=== PATIENT | female | born 1980 | race Caucasian/White ===

== ENCOUNTER 2017-04-15 21:30 | Emergency (ER) | payer MEDICAID ==
[~2017-04-15] VITALS: Ht 170.2 cm; Wt 63.5 kg
[2017-04-15 21:35] VITALS: BP 128/98
--- NOTE | 2017-04-15 21:42 | NUR ---
Pt presents to ED with chronic cough x2 months. Pt states all previous interventions have not alleviated her cough. Pt states pain to bilateral chest wall and back. Pain is rated 5/10 and present every time she coughs. Pt denies SOB or dyspnea. Afebrile. Cough clear and non-productive. Pt in bed with HOB elevated. ER MD aware. Continue to monitor.
--- NOTE | 2017-04-16 | NUR ---
Pt in bed in POC with HOB elevated. VSS. Cough present. A&Ox4. Afebrile. ER aware. Continue to monitor.
[2017-04-16] MEDS ORDERED: ALBUTEROL 0.083% 2.5 MG/3 ML NEBU INH ONE (00:25)
[2017-04-16] MEDS ORDERED: IPRATROPIUM 0.02% 0.5 MG/2.5 ML NEBU INH ONE (00:25)
[2017-04-16] MEDS ORDERED: AZITHROMYCIN 500 MG in DEXTROSE 5% 250 ML IV ONE (00:25)
[2017-04-16] MEDS ORDERED: methylPREDNISolone SS 125 MG in WATER STERILE 2 ML IV ONE (00:25)
[2017-04-16] MEDS ORDERED: ACETAMINOPHEN EXTRA STRENGTH 500 MG TAB PO ONE (00:25)
[2017-04-16] MEDS ORDERED: AZITHROMYCIN 500 MG INJ VIAL IV ONE (00:35)
[2017-04-16 00:43] LABS: BASOPHILS # (AUTO) 0.3 K/uL (0.00-0.22); BASOPHILS % (AUTO) 3.7 % (0.0-2.0); EOSINOPHILS # (AUTO) 0.1 K/uL (0-0.4); HEMATOCRIT 40.5 % (36-48); HEMOGLOBIN 13.1 g/dL (12.0-16.0); LYMPHOCYTES # (AUTO) 2.3 K/uL (2.5-16.5); LYMPHOCYTES % (AUTO) 32.4 % (20.5-51.1); MEAN CORPUSCULAR HEMOGLOBIN 31 pg (27-31); MEAN CORPUSCULAR HGB CONC 33 g/dL (33-37); MEAN CORPUSCULAR VOLUME 94 fL (80-94); MONOCYTES # (AUTO) 0.5 K/uL (0.8-1.0); MONOCYTES % (AUTO) 7.4 % (1.7-9.3); NEUTROPHILS # (AUTO) 3.9 K/uL (1.8-7.7); NEUTROPHILS % (AUTO) 54.5 % (42.2-75.2); PLATELET COUNT (AUTO) 174 K/uL (140-450); RED BLOOD CELL COUNT(AUTO) 4.31 MIL/uL (4.20-5.40); RED CELL DISTRIBUTION WIDTH 13.1 % (11.6-13.7); WHITE BLOOD COUNT (AUTO) 7.1 K/uL (4.8-10.8)
[2017-04-16 00:45] LABS: APPEARANCE,URINE CLEAR (CLEAR); BILIRUBIN,URINE NEGATIVE (NEGATIVE); BLOOD, URINE 1+ (NEGATIVE); COLOR,URINE YELLOW (YELLOW); LEUKOCYTE ESTERASE ,URINE NEGATIVE (NEGATIVE); NITRITE, URINE NEGATIVE (NEGATIVE); PH,URINE 6.5 (5.0-9.0); UGLUCOSE NEGATIVE (NEGATIVE)
[2017-04-16 00:54] LABS: ANION GAP 13.4 (8-16); CARBON DIOXIDE 27.2 mmol/L (21-32); CREATININE 0.8 mg/dL (0.6-1.3); POTASSIUM 3.6 mmol/L (3.5-5.1)
[2017-04-16 00:59] LABS: ALBUMIN 3.8 g/dL (3.4-5.0); TOTAL BILIRUBIN 0.2 mg/dL (0.0-1.0)
[2017-04-16 01:03] LABS: RBC,URINE 0-5 (RARE) /HPF (0-5); WBC,URINE 0-5 (RARE) /HPF (0-5)
[2017-04-16 02:14] VITALS: BP 112/78
--- NOTE | 2017-04-16 02:14 | NUR ---
Patient discharged with v/s stable, no SOB/Dyspnea, and pain decreased. Written and verbal after care instructions given and explained. Patient alert, oriented and verbalized understanding of instructions. Ambulatory with steady gait. All questions addressed prior to discharge. ID band removed. Patient advised to follow up with PMD. Rx of Prednisone, Albuterol, Mucinex, and Doxycycline given. Patient educated on indication of medication including possible reaction and side effects. Opportunity to ask questions provided and answered.
[2017-04-16] MEDS ORDERED: guaiFENesin 600 MG TABER PO SCH (09:00)
== END 2017-04-16 02:14 | disposition home or self-care (01) ==
LOC: MED 21:30
DX: J20.9 Acute bronchitis, unspecified (principal); J42 Unspecified chronic bronchitis
CPT/HCPCS: 36415; 71045; 80053; 81001; 81025; 84484; 85025; 87040; 94640; 96365; 96366; 96375; 99285; J0456; J2930; J7060; J7613; J7644; Q0092